=== PATIENT | female | born 1990 | race Two or more races ===

== ENCOUNTER 2017-11-02 19:25 | Emergency (ER) | payer SELFPAY ==
[~2017-11-02] VITALS: Ht 144.8 cm; Wt 72.6 kg
[2017-11-02] MEDS ORDERED: NKM (19:39)
[2017-11-02 19:43] VITALS: BP 142/88
--- NOTE | 2017-11-02 20:12 | Emergency Room Report ---
History of Present Illness General Chief Complaint: Upper Respiratory Illness Source: Patient Present Illness HPI Pt. presents to the ED c/o persistent dry cough and chest congestion x 3 weeks with progressive anterior chest pain that presents with coughing, no pain at rest, and occasionally with turning torso. Pt. keeps frequently coughing. pt. also reports upper back is beginning to become sore too. Pt. denies cardiac hx. denies hx of asthma. Denies fevers or chills. Denies sore throat, ear pain, high fevers, lethargy, neck pain/stiffness, irritability, photophobia dehydration, N/V/D. Denies Cp, Palpitations, LOC, AMS, seizures, paresthesias, or changes in Hearing or vision, no Sudden severe MONAE. Allergies: Coded Allergies: No Known Allergies (Unverified , 11/02/17) Patient History Past Medical History: see triage record Past Surgical History: none Pertinent Family History: none Last Menstrual Period: 1 week ago Reviewed Nursing Documentation: PMH: Agreed, PSxH: Agreed Nursing Documentation-PMH Past Medical History: No Stated History Review of Systems All Other Systems: negative except mentioned in HPI Physical Exam Vital Signs Date Time Temp Pulse Resp B/P (MAP) Pulse Ox O2 Delivery O2 Flow Rate FiO2 11/02/17 19:35 98.8 130 20 142/88 97 Room Air 11/02/17 19:43 97 Sp02 EP Interpretation: reviewed, normal General Appearance: no apparent distress, alert, GCS 15, non-toxic Head: normocephalic, atraumatic ENT: hearing grossly normal, normal voice Neck: full range of motion, no meningismus Respiratory: lungs clear, normal breath sounds, no respiratory distress, no accessory muscle use, speaking full sentences, wheezing, other - mild sternal and lateral rib cage tenderness to palpation- reproducible Cardiovascular #1: regular rate, rhythm, tachycardia - regular rhythm 26 beats per 15 seconds = 104 bpm Musculoskeletal: back normal, gait/station normal, normal range of motion Neurologic: alert, oriented x3, responsive, motor strength/tone normal, sensory intact, speech normal, grossly normal Psychiatric: judgement/insight normal Skin: normal color, no rash, warm/dry, well hydrated Lymphatic: no adenopathy Medical Decision Making PA Attestation Dr. sahu is my supervising Physician whom patient management has been discussed with. Diagnostic Impression: Primary Impression: Bronchitis ER Course Pt. presents to the ED c/o persistent dry cough and chest congestion x 3 weeks with progressive anterior chest pain that presents with coughing, no pain at rest, and occasionally with turning torso. Pt. keeps frequently coughing. pt. also reports upper back is beginning to become sore too. Pt. denies cardiac hx. denies hx of asthma. Denies fevers or chills. Denies sore throat, ear pain, high fevers, lethargy, neck pain/stiffness, irritability, photophobia dehydration, N/V/D. Denies Cp, Palpitations, LOC, AMS, seizures, paresthesias, or changes in Hearing or vision, no Sudden severe MONAE. Ddx considered but are not limited to URI, pneumonia, PE, strep pharyngitis, meningitis. Vital signs: tachycardic on initial triage VS, however auscultated to be 104 ( 26 bp-25seconds x 4Pt.is afebrile VS are WNL. H&PE are most consistent with bronchitis ORDERS: -CXR: Unremarkable ED INTERVENTIONS: None required at this time. DISCHARGE: At this time pt. is stable for d/c to home. Will provide printed patient care instructions, and any necessary prescriptions. Care plan and follow up instructions have been discussed with the patient prior to discharge. Chest X-Ray Diagnostic Results Chest X-Ray Diagnostic Results : Chest X-Ray Ordered: Yes # of Views/Limited/Complete: 1 View Indication: Other - Cough for > 3 weeks. EP Interpretation: Yes MAREN Xray: Interpretation reviewed, by supervising MD, and agrees with findings. Interpretation: no consolidation, no effusion, no pneumothorax, no acute cardiopulmonary disease Impression: No acute disease Electronically Signed by: Jodie Gould PA-C Last Vital Signs Date Time Temp Pulse Resp B/P (MAP) Pulse Ox O2 Delivery O2 Flow Rate FiO2 11/02/17 19:43 98.8 130 20 142/88 97 Room Air 11/02/17 19:43 97 Disposition: HOME, SELF-CARE Condition: Stable Scripts Acetaminophen* (TYLENOL EXTRA STRENGTH*) 500 Mg Tablet 500 MG ORAL Q6H Y for Mild Pain/Temp > 100.5, #20 TAB 0 Refills Prov: Jodie Gould PChristian 2/5/18 Guaifenesin (Guaifenesin) 1,200 Mg Tab.er.12h 1200 MG PO BID, #20 TAB Prov: Jodie Gould 11/02/17 Codeine/Promethazine Hcl* (PROMETHAZINE-CODEINE SYRUP*) 118 Ml Syrup 5 ML ORAL Q6H Y for For Cough, #120 ML 0 Refills Prov: Jodie Gould 11/02/17 Albuterol Sulfate* (ALBUTEROL SULFATE MDI*) 8.5 Gm Hfa.aer.ad 2 PUFF INH Q4H, #1 INH 0 Refills Prov: Jodie Gould 11/02/17 Patient Instructions: Acute Bronchitis, Effg-nu-Cife, Upper Respiratory Infection, Adult Additional Instructions: Take medications as directed. Follow up with a Primary Care Provider in 3-5 days, even if your symptoms have resolved. --Please review list of primary care clinics, if you do not already have a primary care provider Return sooner to ED if new symptoms occur, or current symptoms become worse. Do not drink alcohol, drive, or operate heavy machinery while taking Cough Syrup as this may cause drowsiness. - Please note that this Emergency Department Report was dictated using [employer] manager technology software, occasionally this can lead to erroneous entry secondary to interpretation by the dictation equipment. Jodie Gould Nov 02, 2017 20:12
[2017-11-02] MEDS ORDERED: TYLENOL EXTRA500 MG ORAL (20:15)
[2017-11-02] MEDS ORDERED: ALBUTEROL SULF8.5 GM INH (20:15)
[2017-11-02] MEDS ORDERED: GUAIFENESIN1200 MG PO (20:15)
[2017-11-02] MEDS ORDERED: PROMETHAZINE-C118 M1 ORAL (20:15)
[2017-11-02 20:25] VITALS: BP 142/88
--- NOTE | 2017-11-03 10:17 | Diagnostic Imaging Report ---
Indication: Chest pain Technique: One view of the chest Comparison: none Findings: Lungs and pleural spaces are clear. Heart size is normal Impression: No acute process
== END 2017-11-02 20:27 | disposition home or self-care (01) ==
LOC: EMR 20:16
DX: J40 Bronchitis, not specified as acute or chronic (principal)
CPT/HCPCS: 71045; 99283